=== PATIENT | female | born 1990 | race Caucasian/White ===

== ENCOUNTER 2019-07-09 09:58 | Inpatient (IN) ==
--- OUTSIDE RECORDS SUMMARY | 2019-07-09 10:00 | External Medical Summary | Continuity of Care Document ---
:1990 Author Name Nasima Lama Address Unavailable Unavailable , Care Team Providers Name Role Phone Jerica Lama, Danyell Unavailable 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 Daina Rhodes Start: 19-Aug-2011 Quantity: 1 18 GM Inhaler Refills: 11 predniSONE 10 MG Oral Tablet; 4 tablets daily for 3 days, 3 tablets daily for 3 days, 2 tablets daily for 3 days, one tablet daily for 3 days, then discontinue. Daina Rhodes Start: 05-Sep-2014 Quantity: 30 Refills: 0 Procedures Procedures not documented Immunizations Immunizations not documented Family History Unknown Family Member Family history of Allergic Rhinitis Status: Active Comm ents: Family History Social History - Smoking Status Never smoked tobacco Plan of Treatment Planned Observations Planned Goals not documented Results No Known Results Results not documented
[2019-07-09] MEDS ORDERED: MAGNESIUM SULFATE 1GM / D5W BAG IV STA (10:24)
[2019-07-09] MEDS ORDERED: SODIUM CHLORIDE 0.9% 1000ML 2,000 ML IV ONE (10:24)
[2019-07-09] MEDS ORDERED: ALBUT/IPRATROP 3MG/0.5MG NEB 3 ML VIAL NEB STA ×2 (10:24→11:40)
[2019-07-09] MEDS ORDERED: SODIUM CHLORIDE 0.9% 1000ML 1,000 ML IV SCH (10:30)
[2019-07-09 11:03] LABS: Basophils # (auto) 0.04 K/uL (0-0.2); Basophils % (auto) 0.6 %; Eosinophils # (auto) 0.57 K/uL (0-0.5); Eosinophils % (auto) 8.1 %; Hematocrit (blood only) 48.3 % (37-47); Hemoglobin 17.4 g/dL (12.0-16.0); Immature Granulocytes # (auto) 0.01 K/uL (0.00-0.02); Immature Granulocytes % (auto) 0.1 %; Lymphocytes % (auto) 11.4 %; Mean Corpuscular Hemoglobin 31.1 pg (25-34); Mean Corpuscular Volume 86.3 fL (80-100); Mean Platelet Volume 10.1 fL (7.4-10.4); Monocytes # (auto) 0.15 K/uL (0.11-0.59); Monocytes % (auto) 2.1 %; Neutrophils # (auto) 5.46 K/uL (1.4-6.5); Neutrophils % (auto) 77.7 %; Platelet Count 235 K/uL (130-400); RDW Coefficient of Variation 13.5 % (11.5-14.5); RDW Standard Deviation 41.7 fL (36.4-46.3); White Blood Count 7.03 K/uL (4.8-10.8)
[2019-07-09 11:21] LABS: BUN Creatinine Ratio 12.2 (10-20); Blood Urea Nitrogen 12 mg/dl (7-18); Calcium 9.9 mg/dl (8.5-10.1); Carbon Dioxide 27 mmol/L (21-32); Chloride 106 mmol/L (98-107); Creatinine Clr Calc Pharmacy 84.6 ml/min; Est GFR (African American) 96.4; Est GFR (Non-African American) 83.1; Glucose 118 mg/dl (70-99); Potassium 4.3 mmol/L (3.5-5.1); Sodium 139 mmol/L (136-145)
[2019-07-09 11:25] LABS: Troponin I < 0.015 ng/ml (0-0.045)
[2019-07-09] MEDS ORDERED: methylPREDNISolone 125 MG/2 ML VIAL IV STA (11:40)
[2019-07-09] MEDS ORDERED: OPTIRAY 320 125ml IV PRN (13:11)
--- NOTE | 2019-07-09 13:27 | CT Scan Report ---
CT angio chest PE protocol CT DOSE: 259.56 mGy.cm HISTORY: Chest pain. Dyspnea. PE TECHNIQUE: Multiaxial CT images of the chest were performed following the intravenous administration of contrast to evaluate the pulmonary arteries. Maximal intensity projection images were also obtaine d. A dose lowering technique was utilized adhering to the principles of ALARA. COMPARISON STUDY: None. FINDINGS: There is a normal caliber thoracic aorta with no evidence for dissection. There is no evide nce for pulmonary embolus. No pleural effusions. No pneumothorax. The liver and spleen are unremarkab le. No mediastinal or hilar lymphadenopathy. The central airways are patent. The lungs are clear. Minimal right basilar atelectatic change present in image 30. IMPRESSION: 1. No evidence for pulmonary embolus. 2. Minimal scattered areas of atelectasis with no focal infiltrate. ACT 112: Negative or not required by law. The above report was generated using voice recognition software. It may contain grammatical, syntax or spelling errors. Electronically signed by: Alexis Roman M.D. 07/09/2019 1:26 PM
[2019-07-09 13:52] LABS: Influenza A virus by PCR Neg for Influ A (Neg); Influenza B virus by PCR Neg for Influ B (Neg)
--- NOTE | 2019-07-09 14:08 | History & Physical Report ---
Date of Service July 09, 2019 Assessment & Plan (1) Asthma exacerbation: Exacerbation of asthma, probably due to viral infection. [employer] swab for influenza A/B PCR negative. Persistent severe symptoms after receiving nebs, steroids, IV Mg, and IV fluids in ED. IV methylprednisolone. Levalbuterol / ipratropium nebs. No apparent indication for antibiotics at this time; reassess need if symptoms persist or worsen. Monitor PEFR's. (2) DVT prophylaxis: Low risk for VTE per IMPROVE risk assessment model, but increased risk due to asthma exacerbation and decreased mobility. SQ enoxaparin. Ambulate. (3) Discharge planning issues: Anticipated discharge to home. Family Medicine follow-up with Dr. Recinos. History of Present Illness Chief Complaint: cough, wheezing, shortness of breath Primary Care Provider: PT DECLINED 29 YO female followed by Dr. Recinos. History of asthma. Hospitalized in past, never intubated. Otherwise, enjoys good health. Noted sinus congestion a few weeks ago. Developed cough, wheezing, SOB about 2 days ago. No fever. No pharyngitis. No chest pain. No sick contacts. No international travel. Works with horses. No unusual exposure to dust, smoke, irritants, allergens. Tried doxycycline and albuterol nebs without significant improvement. Symptoms worsening. Now experiencing dyspnea with minimal exertion (e.g., walking to bathroom). Came to ED for evaluation. Persistent wheezing and SOB after receiving nebs, IV fluids, IV magnesium, and IV steroids. Allergies Allergy/AdvReac Type Severity Reaction Status Date / Time Penicillins Allergy Unknown HIVES Unverified 07/09/19 10:32 Home Medications Home Medications Medication Instructions Recorded Confirmed Type albuterol sulfate 2 puff INHALATION Q4H PRN 07/09/19 07/09/19 History albuterol sulfate 2.5 mg INHALATION Q4H PRN 07/09/19 07/09/19 History Past Med/Surg History Medical History (Updated 07/09/19 @ 15:41 by Salomón Burroughs MD) Asthma (Chronic) Pneumonia (Resolved) Family History (Updated 07/09/19 @ 15:32 by Salomón Burroughs MD) Other Family history non-contributory Social History Preferred Language: Belarusian Communication Ability: Effective Beliefs That Will Affect Care: None Current Living Situation Comment: [facility] Other Information That Helps Us Care for You: No Feels Safe at Home: Yes Safety Concerns: Feels Safe At This Time Smoking Status: Never smoker Hx Alcohol Use: No Hx Substance Use: No Review of Systems Constitutional: no fever and no weight loss Ear, Nose, Mouth, Throat: no sore throat Respiratory: as per Subjective / HPI Cardiovascular: no chest pain Gastrointestinal: no nausea, no vomiting and no diarrhea/loose stools Genitourinary: no dysuria Musculoskeletal: no joint pain and no myalgia Hematologic / Lymphatic: no easy bleeding and no easy bruising Physical Exam Constitutional: WD/WN, vitals as above no acute distress Eyes: PERRL, conjunctivae normal, anicteric sclerae ENMT: external ear and nose normal, oropharynx normal Neck: trachea midline, no thyromegaly Respiratory: + tachypneic Auscultation: + wheezes (diffuse, moderately severe, slightly prolonged expiration) Cardiovascular: Rate/Rhythm: regular rate and + tachycardic Heart Sounds: no gallop, no murmur and no cardiac rub Vessels: no JVD Extremities: normal capillary refill; no calf tenderness and no edema Gastrointestinal (Abdomen): normal bowel sounds, soft, nontender, no hepatosplenomegaly Musculoskeletal: Head/Neck/Chest: neck supple Extremities: strength 5/5 throughout; no cyanosis and no clubbing Skin: no rashes, warm and dry Neurologic: PERRL, EOMI no facial palsy no dysarthria or aphasia Psychiatric: Orientation: alert and oriented x 3 Affect: euthymic affect Lymphatic: no cervical lymphadenopathy Results & Data Vital Signs (Past 12 Hours) Vital Signs Temp Pulse Pulse Resp BP Pulse Ox 07/09/19 12:01 137 H 24 100 07/09/19 12:00 125 H 16 116/63 100 07/09/19 11:40 124 H 25 H 98 07/09/19 11:30 125 H 23 128/90 99 07/09/19 11:20 126 H 22 96 07/09/19 11:11 127 H 18 96 07/09/19 11:09 96 07/09/19 11:08 125 H 24 128/72 97 07/09/19 10:42 106 H 18 88 L 07/09/19 10:10 36.5 C 121 H 20 122/83 89 L Laboratory Results Laboratory Results - last 24 hr 07/09/19 07/09/19 07/09/19 10:52 10:52 12:00 WBC 7.03 RBC 5.60 H Hgb 17.4 H Hct 48.3 H MCV 86.3 MCH 31.1 MCHC 36.0 RDW Std Deviation 41.7 RDW Coeff of Renato 13.5 Plt Count 235 MPV 10.1 Immature Gran % (Auto) 0.1 Neut % (Auto) 77.7 Lymph % (Auto) 11.4 [place] % (Auto) 2.1 Eos % (Auto) 8.1 Baso % (Auto) 0.6 Immature Gran # (Auto) 0.01 Neut # (Auto) 5.46 Lymph # (Auto) 0.80 L [place] # (Auto) 0.15 Eos # (Auto) 0.57 H Baso # (Auto) 0.04 Sodium 139 Potassium 4.3 Chloride 106 Carbon Dioxide 27 Anion Gap 6.0 BUN 12 Creatinine 0.94 Est Cr Clr Drug Dosing 84.6 Est GFR ( Amer) 96.4 Est GFR (Non-Af Amer) 83.1 BUN/Creatinine Ratio 12.2 Glucose 118 H Calcium 9.9 Troponin I < 0.015 Influenza Type A (PCR) Neg for Influ A Influenza Type B (PCR) Neg for Influ B Diagnostic Findings CTA CHEST FINDINGS: There is a normal caliber thoracic aorta with no evidence for dissection. There is no evidence for pulmonary embolus. No pleural effusions. No pneumothorax. The liver and spleen are unremarkable. No mediastinal or hilar lymphadenopathy. The central airways are patent. The lungs are clear. Minimal right basilar atelectatic change present in image 30. IMPRESSION: 1. No evidence for pulmonary embolus. 2. Minimal scattered areas of atelectasis with no focal infiltrate. ACT 112: Negative or not required by law. The above report was generated using voice recognition software. It may contain grammatical, syntax or spelling errors. Electronically signed by: Alexis Roman M.D. 07/09/2019 1:26 PM Code Status & VTE Plan VTE Prophylaxis Plan VTE Prophylaxis will be ordered: Yes (1) Asthma exacerbation Asthma persistence: persistent Asthma severity: severe Qualified Code(s): J45.51 - Severe persistent asthma with (acute) exacerbation
--- NOTE | 2019-07-09 15:17 | Emergency Department Note ---
Entered by Elaine Cardona acting as a scribe for History of Present Illness General Chief complaint: Asthma Stated complaint: ASTHMA EXACERBATION Time Seen by Provider: 07/09/19 10:14 Source: patient Mode of arrival: ambulatory Limitations: no limitations History of Present Illness Onset (ago): day(s) 1 Location: chest Maximum Pain Intensity: 0 Exacerbated By: + movement Associated symptoms: + fever/chills (+chills, -fever) and + other (-abdominal pain); no nausea/vomiting Treatments prior to arrival: none The patient is a 29 year old white female w/ PMHx of asthma who presents to the ED w/ CC of an asthma exacerbation that worsened last night. She went to [facility] this morning and after getting X-rays and a steroid, was referred here to the ED. She has been sick with cold symptoms for the past few days but notes her symptoms worsened last night. Any movement worsens her breathing. She had the chills yesterday but is unsure if she was febrile. She did not get a flu sh ot this year. She denies any recent abdominal pain, nausea or vomiting. Home Medications Home Medications Medication Instructions Recorded Confirmed Type No Known Home Medications 07/09/19 07/09/19 History Allergies Allergy/AdvReac Type Severity Reaction Status Date / Time Penicillins Allergy Unknown HIVES Unverified 07/09/19 10:32 Past Med/Surg History Medical History Asthma (Chronic) Asthma exacerbation (Acute) Asthma exacerbation (Acute) Pneumonia (Acute) Social History Feels Safe at Home: Yes Smoking Status: Never smoker Review of Systems See HPI for pertinent positives & negatives. and A total of 10 systems reviewed and were otherwise negative Physical Exam Vital Signs Vital Signs - 24 hr 07/09/19 10:10 07/09/19 10:42 07/09/19 11:08 Temperature 36.5 C Temperature Source Oral Pulse Rate 121 H 125 H Pulse Rate [Apical] 106 H Pulse Rate from SpO2 Sensor 124 H Pulse Rhythm Regular Pulse Strength Normal Respiratory Rate 20 18 24 Respiratory Effort / Characteristics Non-Labored Spontaneous Spontaneous Respiratory Depth Normal Respiratory Pattern Regular Blood Pressure 122/83 128/72 Blood Pressure Mean 96 92 Blood Pressure Position Sitting Pulse Oximetry 89 L 88 L 97 Oxygen Delivery Method Room Air Room Air Oxygen Flow Rate Sepsis Recent Fever Within 48 Hours No Sepsis Action Taken by Nursing No Action Required 07/09/19 11:09 07/09/19 11:11 07/09/19 11:20 Temperature Temperature Source Pulse Rate 127 H 126 H Pulse Rate [Apical] Pulse Rate from SpO2 Sensor 126 H 127 H Pulse Rhythm Pulse Strength Respiratory Rate 18 22 Respiratory Effort / Characteristics Respiratory Depth Respiratory Pattern Blood Pressure Blood Pressure Mean Blood Pressure Position Pulse Oximetry 96 96 96 Oxygen Delivery Method Nebulizer Oxygen Flow Rate 10 Sepsis Recent Fever Within 48 Hours Sepsis Action Taken by Nursing 07/09/19 11:30 07/09/19 11:40 07/09/19 12:00 Temperature Temperature Source Pulse Rate 125 H 124 H 125 H Pulse Rate [Apical] Pulse Rate from SpO2 Sensor 125 H 124 H 125 H Pulse Rhythm Pulse Strength Respiratory Rate 23 25 H 16 Respiratory Effort / Characteristics Respiratory Depth Respiratory Pattern Blood Pressure 128/90 116/63 Blood Pressure Mean 109 84 Blood Pressure Position Pulse Oximetry 99 98 100 Oxygen Delivery Method Oxygen Flow Rate Sepsis Recent Fever Within 48 Hours Sepsis Action Taken by Nursing 07/09/19 12:01 07/09/19 12:20 07/09/19 12:38 Temperature Temperature Source Pulse Rate 137 H 136 H 142 H Pulse Rate [Apical] Pulse Rate from SpO2 Sensor 136 H 137 H 142 H Pulse Rhythm Pulse Strength Respiratory Rate 24 23 22 Respiratory Effort / Characteristics Respiratory Depth Respiratory Pattern Blood Pressure 115/85 Blood Pressure Mean 90 Blood Pressure Position Pulse Oximetry 100 93 93 Oxygen Delivery Method Oxygen Flow Rate Sepsis Recent Fever Within 48 Hours Sepsis Action Taken by Nursing 07/09/19 12:40 07/09/19 13:00 07/09/19 13:01 Temperature Temperature Source Pulse Rate 139 H 140 H 141 H Pulse Rate [Apical] Pulse Rate from SpO2 Sensor 139 H 140 H 141 H Pulse Rhythm Pulse Strength Respiratory Rate 28 H 23 24 Respiratory Effort / Characteristics Respiratory Depth Respiratory Pattern Blood Pressure 116/74 Blood Pressure Mean 81 Blood Pressure Position Pulse Oximetry 95 95 95 Oxygen Delivery Method Oxygen Flow Rate Sepsis Recent Fever Within 48 Hours Sepsis Action Taken by Nursing 07/09/19 13:28 07/09/19 13:30 07/09/19 13:40 Temperature Temperature Source Pulse Rate 146 H 143 H 143 H Pulse Rate [Apical] Pulse Rate from SpO2 Sensor 145 H 142 H 142 H Pulse Rhythm Pulse Strength Respiratory Rate 23 22 25 H Respiratory Effort / Characteristics Respiratory Depth Respiratory Pattern Blood Pressure 134/75 Blood Pressure Mean 106 Blood Pressure Position Pulse Oximetry 92 93 92 Oxygen Delivery Method Oxygen Flow Rate Sepsis Recent Fever Within 48 Hours Sepsis Action Taken by Nursing 07/09/19 14:00 07/09/19 14:01 07/09/19 14:20 Temperature Temperature Source Pulse Rate 144 H 149 H 143 H Pulse Rate [Apical] Pulse Rate from SpO2 Sensor 145 H 148 H 142 H Pulse Rhythm Pulse Strength Respiratory Rate 20 25 H 20 Respiratory Effort / Characteristics Respiratory Depth Respiratory Pattern Blood Pressure 136/83 Blood Pressure Mean 92 Blood Pressure Position Pulse Oximetry 93 94 92 Oxygen Delivery Method Oxygen Flow Rate Sepsis Recent Fever Within 48 Hours Sepsis Action Taken by Nursing 07/09/19 14:30 07/09/19 14:40 07/09/19 15:00 Temperature Temperature Source Pulse Rate 135 H 140 H 137 H Pulse Rate [Apical] Pulse Rate from SpO2 Sensor 136 H 138 H 138 H Pulse Rhythm Pulse Strength Respiratory Rate 18 26 H 32 H Respiratory Effort / Characteristics Respiratory Depth Respiratory Pattern Blood Pressure 138/76 106/72 Blood Pressure Mean 96 80 Blood Pressure Position Pulse Oximetry 91 93 93 Oxygen Delivery Method Oxygen Flow Rate Sepsis Recent Fever Within 48 Hours Sepsis Action Taken by Nursing 07/09/19 15:01 Temperature Temperature Source Pulse Rate 136 H Pulse Rate [Apical] Pulse Rate from SpO2 Sensor 137 H Pulse Rhythm Pulse Strength Respiratory Rate 24 Respiratory Effort / Characteristics Respiratory Depth Respiratory Pattern Blood Pressure Blood Pressure Mean Blood Pressure Position Pulse Oximetry 92 Oxygen Delivery Method Oxygen Flow Rate Sepsis Recent Fever Within 48 Hours Sepsis Action Taken by Nursing GENERAL: Patient appears to be in mild distress, well nourished, non-toxic. EYE EXAM: Normal conjunctiva. PERRL, no anisocoria and EOM's grossly intact w/o pain. OROPHARYNX: Moist mucous membranes. Grossly normal dentition. NECK: Supple, no nuchal rigidity, no adenopathy, non-tender. No signs of meningismus. Non-stridulous. LUNGS: Diffuse wheezes throughout, prolonged expiratory phase. Normal chest wall mechanics. HEART: NSR, no MRG. ABDOMEN: Abdomen soft, non-tender, normo-active bowel sounds, no masses, no rebound or guarding. BACK: No CVA TTP. SKIN: No rashes and no bruising. UPPER EXTREMITIES: Upper extremities are grossly normal. LOWER EXTREMITIES: No pitting edema. No calf pain. NEURO EXAM: A&O x3, cranial nerves II-XII grossly intact, normal speech, moves all 4 extremities on command w/o issue. Course Course 1017: The patient was evaluated in room A9 and a complete history and physical were performed. 1100: I reevaluated the patient. She refused the chest X-Ray and understands that I cannot see the images from garbs. 1140: I reevaluated the patient. She does not sound much better but has not received her IV fluids yet. 1230: The patient was 87% when she got up and walked to the bathroom. 1245: I reevaluated the patient. She is agreeable with doing a CT scan and remaining in the hospital for further evaluation and management and she is agreeable with the plan. 1303: I discussed the patients case with Dr. Burroughs, [facility] Hospitalist. The patient will be further evaluated. Administered Medications Ioversol (Optiray 320 125ml) 120 ml IV ONCE PRN PRN Reason: Interaction Checking Stop: 07/13/19 13:10 Last Admin: 07/09/19 13:11 Dose: 120 ml Documented by: [id number] Discontinued Medications Albuterol (Duoneb) 12 ml NEB ONE STA Stop: 07/09/19 10:25 Last Admin: 07/09/19 10:40 Dose: 12 ml Documented by: [id number] Albuterol (Duoneb) 3 ml NEB NOW STA Stop: 07/09/19 11:41 Last Admin: 07/09/19 11:47 Dose: 3 ml Documented by: [id number] Sodium Chloride (Nss 1000ml) 2,000 mls @ 999 mls/hr IV .Q2H1M ONE Stop: 07/09/19 12:24 Last Infusion: 07/09/19 13:13 Dose: 0 mls/hr Documented by: [id number] Admin: 07/09/19 11:07 Dose: 999 mls/hr Documented by: [id number] Sodium Chloride (Nss 1000ml) 1,000 mls @ 999 mls/hr IV .Q1H1M GABBI Stop: 07/09/19 11:30 Last Admin: 07/09/19 12:11 Dose: Not Given Documented by: [id number] Magnesium Sulfate/Dextrose (Magnesium Sulfate / D5w) 2 gm IV NOW STA Stop: 07/09/19 10:25 Last Admin: 07/09/19 11:07 Dose: 2 gm Documented by: [id number] Methylprednisolone (Solumedrol) 60 mg IV NOW STA Stop: 07/09/19 11:41 Last Admin: 07/09/19 11:47 Dose: 60 mg Documented by: [id number] Medical Decision Making Medical Records Attestation: I reviewed the patient's medical records. Home Medications Current Medication List: was personally reviewed by me Laboratory Data Attestation: I reviewed the patient's lab results. Result diagrams: 07/09/19 10:52 07/09/19 10:52 Lab Results 07/09/19 07/09/19 07/09/19 Range/Units 10:52 10:52 12:00 WBC 7.03 (4.8-10.8) K/uL RBC 5.60 H (4.2-5.4) M/uL Hgb 17.4 H (12.0-16.0) g/dL Hct 48.3 H (37-47) % MCV 86.3 (80-100) fL MCH 31.1 (25-34) pg MCHC 36.0 (32-36) g/dL RDW Std Deviation 41.7 (36.4-46.3) fL RDW Coeff of Renato 13.5 (11.5-14.5) % Plt Count 235 (130-400) K/uL MPV 10.1 (7.4-10.4) fL Immature Gran % (Auto) 0.1 % Neut % (Auto) 77.7 % Lymph % (Auto) 11.4 % [place] % (Auto) 2.1 % Eos % (Auto) 8.1 % Baso % (Auto) 0.6 % Immature Gran # (Auto) 0.01 (0.00-0.02) K/uL Neut # (Auto) 5.46 (1.4-6.5) K/uL Lymph # (Auto) 0.80 L (1.2-3.4) K/uL [place] # (Auto) 0.15 (0.11-0.59) K/uL Eos # (Auto) 0.57 H (0-0.5) K/uL Baso # (Auto) 0.04 (0-0.2) K/uL Sodium 139 (136-145) mmol/L Potassium 4.3 (3.5-5.1) mmol/L Chloride 106 (98-107) mmol/L Carbon Dioxide 27 (21-32) mmol/L Anion Gap 6.0 (3-11) BUN 12 (7-18) mg/dl Creatinine 0.94 (0.6-1.2) mg/dl Est Cr Clr Drug Dosing 84.6 ml/min Est GFR ( Amer) 96.4 Est GFR (Non-Af Amer) 83.1 BUN/Creatinine Ratio 12.2 (10-20) Glucose 118 H (70-99) mg/dl Calcium 9.9 (8.5-10.1) mg/dl Troponin I < 0.015 (0-0.045) ng/ml Influenza Type A (PCR) Neg for Influ A (Neg) Influenza Type B (PCR) Neg for Influ B (Neg) Imaging Data Radiologist's Impression: Radiology results as stated below per my review and the radiologist's interpretation: CT angio chest PE protocol CT DOSE: 259.56 mGy.cm HISTORY: Chest pain. Dyspnea. PE TECHNIQUE: Multiaxial CT images of the chest were performed following the intravenous administration of contrast to evaluate the pulmonary arteries. Maximal intensity projection images were also obtained. A dose lowering tech nique was utilized adhering to the principles of ALARA. COMPARISON STUDY: None. FINDINGS: There is a normal caliber thoracic aorta with no evidence for dissection. There is no evidence for pulmonary embolus. No pleural effusions. No pneumothorax. The liver and spleen are unremarkable. No mediastinal or hilar lymphadenopathy. The central airways are patent. The lungs are clear. Minimal right basilar atelectatic change present in image 30. IMPRESSION: 1. No evidence for pulmonary embolus. 2. Minimal scattered areas of atelectasis with no focal infiltrate. ACT 112: Negative or not required by law. The above report was generated using voice recognition software. It may contain grammatical, syntax or spelling errors. Electronically signed by: Alexis Roman M.D. 07/09/2019 1:26 PM ECG Data Attestation: I personally reviewed and interpreted this ECG as follows: Indication: + SOB/dyspnea Rate (beats per minute): 142 Rhythm: + sinus tachycardia ECG [place]: + Right axis deviation ECG ST segments: + T-wave inversions (Throughout) ECG Findings: + Other (Normal interval) Comparison ECG Date: from (09/03/2014) Change: the following changes noted (TWI anteriorly and inferiorly are new compared to previous) Blood Pressure Blood Pressure Findings: Normal blood pressure Blood Pressure Disposition: did not require urgent referral MDM Narrative The patient is a 29 year old white female w/ PMHx of asthma who presents to the ED w/ CC of an asthma exacerbation that worsened last night. Differential diagnoses includes but is not limited to pneumonia, bronchitis, COPD/Asthma exacerbation, pneumothorax, pulmonary embolism, congestive heart failure, acute coronary syndrome. Cardiac monitoring: An order was placed for continuous cardiac monitoring. The monitor shows a rate of 130 with sinus tachycardia rhythm. Patient was seen and evaluated the bedside as a referral from [facility] due to worsening asthma exacerbation. The patient states that her symptoms have been progressively worse but worsened yesterday. The patient does complain of some shortness of breath. No lower extremity swelling. Patient does have wheezes throughout. No prior history of DVT or PE no recent prolonged car or plane t ravel hospitalizations or surgeries. Patient did a blood work completed along with an EKG chest x-rays were obtained from the facility as the patient was not wanting to repeat a chest film. Believe this is reasonable. Patient was reassessed and did not have much improvement in her symptoms but additional duo nebs and Solu-Medrol were ordered. The patient had been mildly hypoxic upon presentation 89%. Patient's blood work is unremarkable. EKG shows sinus tachycardia. The patient did receive repeated nebulizer treatments and steroids. The patient still did not have much in terms of improvement so CT Hollie of the chest was ordered as the patient has been persistently tachycardic. The patient did receive IV fluids. I did try to obtain the patient's outpatient chest x-ray is which could not be viewed here in the department. Given the patient's persistent hypoxia and not improvement of symptoms the patient was admitted to the medicine service. Impression & Plan Asthma exacerbation, SOB (shortness of breath) Discharge Plan Visit Data Chief Complaint: Asthma Stated Complaint: ASTHMA EXACERBATION ED Provider: Zac Barbosa Discharge Problem: Asthma exacerbation, SOB (shortness of breath) Patient Disposition: Being Evaluated by Hospitalist Discharge Instructions Interventions: ED Discharge Assessment Last Done: 07/09/19 15:11 Prescriptions Prescriptions: No Action No Known Home Medications RF: 0 Referrals Referrals: PT,DECLINED [Primary Care Provider] - Discharge Problem: Asthma exacerbation Qualifiers: Asthma severity: severe Asthma persistence: persistent Qualified Code(s): J45.51 - Severe persistent asthma with (acute) exacerbation The scribe's documentation has been prepared under my direction and personally reviewed by me in its entirety. I confirm that the note above accurately reflects all work, treatment, procedures, and medical decision making performed by me.
[2019-07-09] MEDS ORDERED: LEVALBUTEROL 1.25MG/0.5ML NEB NEB SCH (15:37)
[2019-07-09] MEDS ORDERED: LEVALBUTEROL HCL 0.63 MG/3 ML NEB NEB PRN (15:37)
[2019-07-09] MEDS: LACTATED RINGER'S 1,000 ML IV SCH ×2 (16:05→22:25)
--- NOTE | 2019-07-09 16:54 | Electrocardiogram Report ---
Test Reason : Blood Pressure : / mmHG Vent. Rate : 142 BPM Atrial Rate : 142 BPM P-R Int : 112 ms QRS Dur : 078 ms QT Int : 352 ms P-R-T Axes : 051 086 029 degrees QTc Int : 541 ms Sinus tachycardia Incomplete right bundle branch block Abnormal ECG When compared with ECG of 03-SEP-2014 21:09, T wave inversion more evident in Inferior leads T wave inversion now evident in Anterolateral leads Confirmed by Moses Fong ([id number]) on 07/09/2019 4:54:02 PM Referred By: REFERRED SELF Confirmed By:Lionel Fong
[2019-07-09] MEDS: methylPREDNISolone 80 MG in SYRINGE 0 ML IV SCH ×2 (16:56→23:38)
[2019-07-09] MEDS: ACETAMINOPHEN 325 MG TAB PO PRN ×2 (16:58→22:25)
[2019-07-09] MEDS ORDERED: XOPENEX/ATROVENT 0.63mg/0.5MG NEB COMBO NEB SCH (19:00)
[2019-07-09] MEDS: IPRATROPIUM BROMIDE NEB SOLN 0.02% 2.5 ML VIAL INH SCH (19:03)
[2019-07-09] MEDS: LEVALBUTEROL HCL 0.63 MG/3 ML NEB NEB SCH (19:03)
[2019-07-09 19:25] LABS: Base Excess VBG -3.8 mEq/L; Oxygen Saturation VBG 75.7 %; pH VBG 7.36 (7.36-7.41)
[2019-07-09 19:32] LABS: INR 1.2 (0.9-1.1); Partial Thromboplastin Time 26.3 Seconds (21.0-31.0); Prothrombin Time 11.8 Seconds (9.0-12.0)
[2019-07-09 19:44] LABS: BUN Creatinine Ratio 6.8 (10-20); Calcium 8.9 mg/dl (8.5-10.1); Creatinine Clr Calc Pharmacy 81.9 ml/min; Est GFR (African American) 92.8
[2019-07-09 19:45] LABS: Potassium 3.6 mmol/L (3.5-5.1)
[2019-07-09] MEDS ORDERED: POTASSIUM CHLORIDE 20 MEQ TABCR PO ONE (21:00)
[2019-07-09] MEDS: ENOXAPARIN INJ 40 MG/0.4 ML SYR SQ SCH (21:40)
[2019-07-09] MEDS ORDERED: SODIUM CHLORIDE 0.65% NA SOLN 45 ML (OCEAN) PRN (22:26)
[2019-07-09] MEDS ORDERED: SODIUM CHLORIDE 0.65% NA SOLN 45 ML (OCEAN) ONE (22:44)
[2019-07-09] MEDS ORDERED: IBUPROFEN 600 MG TAB PO STA (23:25)
[2019-07-10] MEDS ORDERED: GUAIFENESIN/CODEINE 100MG/10MG 5ML UDC PO PRN (04:21)
[2019-07-10] MEDS: BENZONATATE 100 MG CAPSULE PO PRN (04:33)
[2019-07-10] MEDS ORDERED: XOPENEX/ATROVENT 1.25mg/0.5MG NEB COMBO NEB PRN (05:03)
[2019-07-10] MEDS ORDERED: IPRATROPIUM BROMIDE NEB SOLN 0.02% 2.5 ML VIAL INH PRN (05:15)
[2019-07-10] MEDS ORDERED: LEVALBUTEROL 1.25MG/0.5ML NEB INH PRN (05:15)
[2019-07-10] MEDS: LACTATED RINGER'S 1,000 ML IV SCH ×2 (05:38→12:08)
[2019-07-10] MEDS: IPRATROPIUM BROMIDE NEB SOLN 0.02% 2.5 ML VIAL INH SCH ×3 (07:41→15:20)
[2019-07-10] MEDS: LEVALBUTEROL HCL 0.63 MG/3 ML NEB NEB SCH ×3 (07:41→15:20)
[2019-07-10 08:31] LABS: Calcium 9.2 mg/dl (8.5-10.1); Creatinine Clr Calc Pharmacy 116.4 ml/min; Est GFR (African American) 137.6; Est GFR (Non-African American) 118.7; Potassium 3.8 mmol/L (3.5-5.1)
[2019-07-10] MEDS: ACETAMINOPHEN 325 MG TAB PO PRN (08:42)
[2019-07-10] MEDS ORDERED: methylPREDNISolone 60 MG in SYRINGE 0 ML IV SCH (09:00)
--- NOTE | 2019-07-10 11:36 | Hospitalist Progress Note ---
Date of Service July 10, 2019 Assessment & Plan (1) Asthma exacerbation: Exacerbation of asthma, probably due to viral infection. [employer] swab for influenza A/B PCR negative. Persistent severe symptoms after receiving nebs, steroids, IV Mg, and IV fluids in ED. IV methylprednisolone. Levalbuterol / ipratropium nebs. No apparent indication for antibiotics at this time; reassess need if symptoms persist or worsen. Clinically a lot better today Complains to have cough and wheezing otherwise breathing in each much improved She wants to go home this afternoon Was advised to ambulate and see how things go We will try to wean off oxygen (2) DVT prophylaxis: Low risk for VTE per IMPROVE risk assessment model, but increased risk due to asthma exacerbation and decreased mobility. SQ enoxaparin. Ambulate. (3) Discharge planning issues: Anticipated discharge to home. Family Medicine follow-up with Dr. Recinos. Admission and Anticipated Discharge Date Admission Date: July 09, 2019 Subjective 07/10/2019 The patient was seen and examined in medical telemetry in presence of the father She was admitted yesterday with acute exacerbation of asthma She has been feeling a lot better this morning Only complains however cough and some wheezing She wants to go home this afternoon and was advised to ambulate in the hallway see how things go Review of Systems Review of Systems: All systems reviewed and are unremarkable except as noted below Respiratory: + cough, + dyspnea on exertion and + wheezing Physical Exam Physical Exam: Lying in bed without any acute discomfort Constitutional: well developed and well nourished; no acute distress and not ill appearing Eyes: PERRL, conjunctivae normal, anicteric sclerae ENMT: external ear and nose normal, oropharynx normal Neck: trachea midline, no thyromegaly Respiratory: normal respiratory effort; no respiratory distress Auscultation: + diminished lung sounds and + wheezes (Bilaterally moderate) Cardiovascular: Rate/Rhythm: regular rate, regular rhythm and + tachycardic Heart Sounds: no murmur Gastrointestinal (Abdomen): Inspection/Auscultation: abdomen normal to inspection and normal bowel sounds Percussion/Palpation: abdomen soft; abdomen nontender Musculoskeletal: No acute arthritis in any joint Neurologic: patellar DTR's 2+ bilat, sensation intact Lymphatic: no cervical or axillary lymphadenopathy Results & Data ([facility]) Vital Signs (Past 12 Hours) Vital Signs Temp Pulse Pulse Resp BP Pulse Ox 07/10/19 11:09 118 H 18 92 07/10/19 07:43 119 H 20 92 07/10/19 07:24 124 H 07/10/19 05:49 112 H 22 92 07/10/19 03:04 36.9 C 115 H 20 127/77 92 07/10/19 01:12 115 H 20 92 07/10/19 00:00 124 H Laboratory Results BMP 07/09/19 07/10/19 19:10 07:22 Sodium 141 141 Potassium 3.6 D 3.8 Chloride 111 H 112 H Carbon Dioxide 22 22 BUN 7 D 6 L Creatinine 0.97 0.70 Glucose 161 H 131 H Calcium 8.9 9.2 Medications Administered Current Inpatient Medications Acetaminophen (Tylenol) 650 mg PO Q4H PRN PRN Reason: Pain or Fever Stop: 08/08/19 15:36 Last Admin: 07/10/19 08:42 Dose: 650 mg Documented by: Benzonatate (Tessalon Perle) 100 mg PO TID PRN PRN Reason: Cough Stop: 08/09/19 04:20 Last Admin: 07/10/19 04:33 Dose: 100 mg Documented by: Enoxaparin Sodium (Lovenox) 40 mg SQ HS GABBI Stop: 08/08/19 20:59 Last Admin: 07/09/19 21:40 Dose: 40 mg Documented by: Guaifenesin/Codeine Phosphate (Robitussin-Ac Sugar Free) 5 ml PO Q6H PRN PRN Reason: Cough Stop: 08/09/19 04:20 Lactated Ringer's (Lr) 1,000 mls @ 150 mls/hr IV .Q6H40M GABBI Stop: 08/08/19 15:36 Last Admin: 07/10/19 05:38 Dose: 150 mls/hr Documented by: Methylprednisolone 60 mg/ (Syringe) 0.96 mls @ 1.5 mls/min IV BID GABBI Stop: 08/09/19 08:59 Last Admin: 07/10/19 08:43 Dose: 1.5 mls/min Documented by: Ioversol (Optiray 320 125ml) 120 ml IV ONCE PRN PRN Reason: Interaction Checking Stop: 07/13/19 13:10 Last Admin: 07/09/19 13:11 Dose: 120 ml Documented by: Ipratropium [place] (Atrovent 0.02% 0.5mg/2.5ml) 0.5 mg INH QIDR GABBI Stop: 08/08/19 18:59 Last Admin: 07/10/19 11:08 Dose: 0.5 mg Documented by: Ipratropium [place] (Atrovent 0.02% 0.5mg/2.5ml) 0.5 mg INH Q2H PRN PRN Reason: Shortness Of Breath Or Wheezing Stop: 08/09/19 05:14 Last Admin: 07/10/19 05:46 Dose: 0.5 mg Documented by: Levalbuterol HCl (Xopenex 0.63 Mg/3 Ml Neb) 0.63 mg NEB Q3H PRN PRN Reason: severe wheezing Stop: 08/08/19 15:36 Last Admin: 07/10/19 01:11 Dose: 0.63 mg Documented by: Levalbuterol HCl (Xopenex 0.63 Mg/3 Ml Neb) 0.63 mg NEB QIDR [facility] Stop: 08/08/19 18:59 Last Admin: 07/10/19 11:08 Dose: 0.63 mg Documented by: Levalbuterol HCl (Xopenex 1.25mg/0.5ml Neb) 1.25 mg INH Q2H PRN PRN Reason: Shortness Of Breath Or Wheezing Stop: 08/09/19 05:14 Last Admin: 07/10/19 05:46 Dose: 1.25 mg Documented by: Sodium Chloride ([place] Nasal) 0 sprays NA PRN PRN PRN Reason: dry nose Stop: 08/08/19 22:25 (1) Asthma exacerbation Asthma persistence: persistent Asthma severity: severe Qualified Code(s): J45.51 - Severe persistent asthma with (acute) exacerbation
[2019-07-10] MEDS ORDERED: ALBUTEROL HFA 8 GM INHALER INH PRN (17:01)
[2019-07-10] MEDS: ENOXAPARIN INJ 40 MG/0.4 ML SYR SQ SCH (21:37)
[2019-07-11] MEDS: BENZONATATE 100 MG CAPSULE PO PRN (03:06)
[2019-07-11] MEDS ORDERED: MAGNESIUM SULFATE / D5W 1 GM/100 ML BAG IV STA (04:52)
[2019-07-11] MEDS ORDERED: IPRATROPIUM BROMIDE NEB SOLN 0.02% 2.5 ML VIAL INH SCH ×3 (05:00→14:00)
[2019-07-11] MEDS ORDERED: LEVALBUTEROL 1.25MG/0.5ML NEB INH SCH ×2 (05:00→14:00)
[2019-07-11] MEDS ORDERED: LEVALBUTEROL HCL 1.25 MG/3 ML NEB NEB STA (05:12)
[2019-07-11] MEDS: methylPREDNISolone 60 MG in SYRINGE 0 ML IV SCH ×3 (05:38→20:45)
[2019-07-11] MEDS: ACETAMINOPHEN 325 MG TAB PO PRN ×3 (06:09→20:44)
[2019-07-11] MEDS ORDERED: XOPENEX/ATROVENT 1.25mg/0.5MG NEB COMBO NEB SCH (07:00)
[2019-07-11] MEDS ORDERED: XOPENEX/ATROVENT 0.63mg/0.5MG NEB COMBO NEB SCH ×2 (07:00→22:00)
[2019-07-11] MEDS ORDERED: LEVALBUTEROL HCL 1.25 MG/3 ML NEB NEB SCH (07:00)
[2019-07-11] MEDS ORDERED: LORazepam 0.5 MG TAB PO ONE (07:38)
[2019-07-11] MEDS: LEVALBUTEROL HCL 0.63 MG/3 ML NEB NEB SCH ×4 (07:51→19:38)
[2019-07-11] MEDS: FLUTICASONE FUROATE 200MCG 14 PUFFS/INHALER INH SCH (08:14)
[2019-07-11] MEDS ORDERED: predniSONE 20 MG TAB PO SCH (09:00)
--- NOTE | 2019-07-11 09:52 | XRay Report ---
XR chest 2V PA/lateral HISTORY: Acute Bronchitis/Pneumonia COMPARISON: Chest CTA 07/09/2019. FINDINGS: Faint hazy density within the right lung base. In retrospect this is present in the prior c hest CTA and favors a developing pneumonia. The left lung is clear. The heart is normal in size. No p leural effusions. No pneumothorax. IMPRESSION: Faint hazy density within the right lung base. In retrospect this was present in the prior chest CT 8 favors a developing pneumonia. ACT 112: Negative or not required by law. Electronically signed by: Tl Luke M.D. 07/11/2019 9:51 AM
[2019-07-11 10:39] LABS: Basophils # (auto) 0.01 K/uL (0-0.2); Basophils % (auto) 0.1 %; Eosinophils # (auto) 0.01 K/uL (0-0.5); Eosinophils % (auto) 0.1 %; Hematocrit (blood only) 40.1 % (37-47); Hemoglobin 13.4 g/dL (12.0-16.0); Immature Granulocytes # (auto) 0.02 K/uL (0.00-0.02); Immature Granulocytes % (auto) 0.2 %; Lymphocytes # (auto) 0.55 K/uL (1.2-3.4); Mean Corpuscular Hemoglobin 29.6 pg (25-34); Mean Corpuscular Hgb Conc 33.4 g/dL (32-36); Mean Corpuscular Volume 88.5 fL (80-100); Mean Platelet Volume 10.1 fL (7.4-10.4); Monocytes # (auto) 0.27 K/uL (0.11-0.59); Monocytes % (auto) 2.5 %; Neutrophils % (auto) 92.1 %; Platelet Count 190 K/uL (130-400); RDW Coefficient of Variation 14.1 % (11.5-14.5); Red Blood Count 4.53 M/uL (4.2-5.4); White Blood Count 10.96 K/uL (4.8-10.8)
[2019-07-11 10:54] LABS: BUN Creatinine Ratio 12.6 (10-20); Creatinine Clr Calc Pharmacy 88.9 ml/min; Est GFR (African American) 98.9; Est GFR (Non-African American) 85.3; Magnesium 1.9 mg/dl (1.8-2.4); Potassium 3.1 mmol/L (3.5-5.1)
[2019-07-11] MEDS: LEVOFLOXACIN/D5W 750 MG/150 ML BAG IV SCH (10:56)
[2019-07-11] MEDS ORDERED: IPRATROPIUM BROMIDE NEB SOLN 0.02% 2.5 ML VIAL INH PRN (11:39)
[2019-07-11] MEDS ORDERED: POTASSIUM CHLORIDE 20 MEQ TABCR PO STA (11:46)
[2019-07-11] MEDS ORDERED: XOPENEX/ATROVENT 1.25mg/0.5MG NEB COMBO NEB PRN (13:56)
[2019-07-11] MEDS ORDERED: LEVALBUTEROL HCL 0.63 MG/3 ML NEB NEB PRN (14:20)
--- NOTE | 2019-07-11 15:01 | Electrocardiogram Report ---
Test Reason : Blood Pressure : / mmHG Vent. Rate : 106 BPM Atrial Rate : 106 BPM P-R Int : 148 ms QRS Dur : 076 ms QT Int : 332 ms P-R-T Axes : 069 084 062 degrees QTc Int : 441 ms Sinus tachycardia Otherwise normal ECG When compared with ECG of 09-JUL-2019 13:06, T wave inversion no longer evident in Inferior leads T wave inversion no longer evident in Anterolateral leads Confirmed by Moses Fong ([id number]) on 07/11/2019 3:01:15 PM Referred By: REFERRED SELF Confirmed By:Lionel Fong
[2019-07-11] MEDS: IPRATROPIUM BROMIDE NEB SOLN 0.02% 2.5 ML VIAL INH SCH ×2 (17:28→19:39)
--- NOTE | 2019-07-11 18:23 | Hospitalist Progress Note ---
Date of Service July 11, 2019 Assessment & Plan (1) Pneumonia: History of asthma and admitted with increasing shortness of breath, cough and wheezing Noted to be tachycardic since admission without any fever and/or chills Chest x-ray this morning did show developing right basal pneumonia Started with intravenous Levaquin and will be continued for a total of 7 to 10 days on discharge (2) Asthma exacerbation: Exacerbation of asthma, probably due to viral infection. 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 Persistent severe symptoms after receiving nebs, steroids, IV Mg, and IV fluids in ED. IV methylprednisolone. Levalbuterol / ipratropium nebs. No apparent indication for antibiotics at this time; reassess need if symptoms persist or worsen. Condition got worse likely secondary to development of pneumonia Has been put back on intravenous Solu-Medrol and nebulized bronchodilator as needed We will continue with rescue inhalers and nebulized steroids on discharge Blood better following administration of intravenous antibiotic Likely be discharged tomorrow Has an appointment with outpatient provider Dr. Jung (3) DVT prophylaxis: Low risk for VTE per IMPROVE risk assessment model, but increased risk due to asthma exacerbation and decreased mobility. SQ enoxaparin. Ambulate. Discussed with the father and the family members (4) Discharge planning issues: Anticipated discharge to home. Family Medicine follow-up with Dr. Recinos. Admission and Anticipated Discharge Date Admission Date: July 09, 2019 Subjective 07/10/2019 The patient was seen and examined in medical telemetry in presence of the father She was admitted yesterday with acute exacerbation of asthma She has been feeling a lot better this morning Only complains however cough and some wheezing She wants to go home this afternoon and was advised to ambulate in the hallway see how things go 07/11/2019 Patient was seen and examined in medical floor She has had more shortness of breath and wheezing last night and has been put back on intravenous steroid and nebulized bronchodilator She remains tachycardic Chest x-ray did show possible developing pneumonia right lung She has some cough but no significant shortness of breath during my examination this morning Review of Systems Review of Systems: All systems reviewed and are unremarkable except as noted below Respiratory: + cough, + dyspnea on exertion and + wheezing Physical Exam Physical Exam: Lying in bed with some shortness of breath and wheezing Constitutional: well developed and well nourished; no acute distress and not ill appearing Eyes: PERRL, conjunctivae normal, anicteric sclerae ENMT: external ear and nose normal, oropharynx normal Neck: trachea midline, no thyromegaly Respiratory: + respiratory distress (Minimal distress due to wheezing and shortness of breath) Auscultation: + diminished lung sounds, + crackles (Noted bilaterally mostly on the right side) and + wheezes (Noted bilaterally) Cardiovascular: Rate/Rhythm: regular rate, regular rhythm and + tachycardic Heart Sounds: no murmur Gastrointestinal (Abdomen): Inspection/Auscultation: abdomen normal to inspection and normal bowel sounds Percussion/Palpation: abdomen soft; abdomen nontender Neurologic: patellar DTR's 2+ bilat, sensation intact Lymphatic: no cervical or axillary lymphadenopathy Results & Data ([facility]) Vital Signs (Past 12 Hours) Vital Signs Temp Pulse Pulse Resp BP Pulse Ox 07/11/19 16:30 120 H 92 07/11/19 16:22 37.0 C 124 H 19 125/80 88 L 07/11/19 15:48 92 H 20 97 07/11/19 15:17 130 H 07/11/19 11:18 36.9 C 118 H 18 137/82 90 07/11/19 07:52 115 H 18 92 07/11/19 07:48 117 H 07/11/19 07:33 37.0 C 117 H 18 122/72 90 Laboratory Results Short CBC 07/11/19 Range/Units 09:59 WBC 10.96 H (4.8-10.8) K/uL Hgb 13.4 D (12.0-16.0) g/dL Hct 40.1 (37-47) % Plt Count 190 (130-400) K/uL BMP 07/11/19 09:59 Sodium 142 Potassium 3.1 L D Chloride 109 H Carbon Dioxide 24 BUN 12 D Creatinine 0.92 Glucose 107 H Calcium 9.0 Diagnostic Findings Chest x-ray: Faint hazy density within the right lung base. In retrospect this was present in the prior chest CT 8 favors a developing pneumonia. Medications Administered Current Inpatient Medications Acetaminophen (Tylenol) 650 mg PO Q4H PRN PRN Reason: Pain or Fever Stop: 08/08/19 15:36 Last Admin: 07/11/19 12:05 Dose: 650 mg Documented by: Albuterol (Ventolin Hfa) 2 puffs INH Q4H PRN PRN Reason: Shortness Of Breath Or Wheezing Stop: 08/09/19 17:00 Last Admin: 07/10/19 19:08 Dose: 2 puffs Documented by: Benzonatate (Tessalon Perle) 100 mg PO TID PRN PRN Reason: Cough Stop: 08/09/19 04:20 Last Admin: 07/11/19 03:06 Dose: 100 mg Documented by: Enoxaparin Sodium (Lovenox) 40 mg SQ HS GABBI Stop: 08/08/19 20:59 Last Admin: 07/10/19 21:37 Dose: 40 mg Documented by: Fluticasone Furoate ([place] Ellipta 200mcg) 1 puffs INH DAILY GABBI Stop: 08/10/19 08:59 Last Admin: 07/11/19 08:14 Dose: 1 puffs Documented by: Guaifenesin/Codeine Phosphate (Robitussin-Ac Sugar Free) 5 ml PO Q6H PRN PRN Reason: Cough Stop: 08/09/19 04:20 Methylprednisolone 60 mg/ (Syringe) 0.96 mls @ 1.5 mls/min IV Q8H GABBI Stop: 08/10/19 04:59 Last Admin: 07/11/19 12:02 Dose: 1.5 mls/min Documented by: Levofloxacin/Dextrose (Levaquin/D5w) 750 mg in 150 mls @ 100 mls/hr IV Q24H GABBI Stop: 07/18/19 10:59 Last Infusion: 07/11/19 12:33 Dose: Infused Documented by: Ioversol (Optiray 320 125ml) 120 ml IV ONCE PRN PRN Reason: Interaction Checking Stop: 07/13/19 13:10 Last Admin: 07/09/19 13:11 Dose: 120 ml Documented by: Ipratropium [place] (Atrovent 0.02% 0.5mg/2.5ml) 0.5 mg INH Q6R GABBI Stop: 08/10/19 16:29 Last Admin: 07/11/19 17:28 Dose: Not Given Documented by: Levalbuterol HCl (Xopenex 0.63 Mg/3 Ml Neb) 0.63 mg NEB Q6R GABBI Stop: 03/26/20 16:29 Last Admin: 07/11/19 17:29 Dose: Not Given Documented by: Sodium Chloride ([place] Nasal) 0 sprays NA PRN PRN PRN Reason: dry nose Stop: 08/08/19 22:25 (1) Asthma exacerbation Asthma persistence: persistent Asthma severity: severe Qualified Code(s): J45.51 - Severe persistent asthma with (acute) exacerbation
[2019-07-11] MEDS: ENOXAPARIN INJ 40 MG/0.4 ML SYR SQ SCH (20:44)
[2019-07-12] MEDS: IPRATROPIUM BROMIDE NEB SOLN 0.02% 2.5 ML VIAL INH SCH ×3 (01:02→11:39)
[2019-07-12] MEDS: LEVALBUTEROL HCL 0.63 MG/3 ML NEB NEB SCH ×3 (01:02→11:39)
[2019-07-12] MEDS: ACETAMINOPHEN 325 MG TAB PO PRN (05:19)
[2019-07-12] MEDS: methylPREDNISolone 60 MG in SYRINGE 0 ML IV SCH (05:20)
[2019-07-12 07:49] LABS: Hematocrit (blood only) 40.7 % (37-47); Hemoglobin 13.8 g/dL (12.0-16.0); Immature Granulocytes # (auto) 0.03 K/uL (0.00-0.02); Immature Granulocytes % (auto) 0.3 %; Lymphocytes # (auto) 0.65 K/uL (1.2-3.4); Lymphocytes % (auto) 5.9 %; Mean Corpuscular Hemoglobin 30.1 pg (25-34); Mean Corpuscular Hgb Conc 33.9 g/dL (32-36); Mean Corpuscular Volume 88.9 fL (80-100); Mean Platelet Volume 9.9 fL (7.4-10.4); Monocytes # (auto) 0.53 K/uL (0.11-0.59); Monocytes % (auto) 4.8 %; Neutrophils # (auto) 9.89 K/uL (1.4-6.5); Platelet Count 192 K/uL (130-400); RDW Coefficient of Variation 13.8 % (11.5-14.5); RDW Standard Deviation 45.3 fL (36.4-46.3); Red Blood Count 4.58 M/uL (4.2-5.4)
[2019-07-12 08:22] LABS: BUN Creatinine Ratio 14.6 (10-20); Calcium 9.3 mg/dl (8.5-10.1); Creatinine Clr Calc Pharmacy 108.3 ml/min; Est GFR (African American) 126.6; Est GFR (Non-African American) 109.2; Potassium 4.2 mmol/L (3.5-5.1)
[2019-07-12] MEDS: FLUTICASONE FUROATE 200MCG 14 PUFFS/INHALER INH SCH (08:48)
--- NOTE | 2019-07-12 10:22 | Hospitalist Progress Note ---
Date of Service July 12, 2019 Assessment & Plan (1) Pneumonia: History of asthma and admitted with increasing shortness of breath, cough and wheezing Noted to be tachycardic since admission without any fever and/or chills Chest x-ray this morning did show developing right basal pneumonia Started with intravenous Levaquin and will be continued for a total of 7 to 10 days on discharge Clinically a lot better today and will be discharged home this afternoon (2) Asthma exacerbation: Exacerbation of asthma, probably due to viral infection. [employer] swab for influenza A/B PCR negative. Persistent severe symptoms after receiving nebs, steroids, IV Mg, and IV fluids in ED. IV methylprednisolone. Levalbuterol / ipratropium nebs. No apparent indication for antibiotics at this time; reassess need if symptoms persist or worsen. Condition got worse likely secondary to development of pneumonia Has been put back on intravenous Solu-Medrol and nebulized bronchodilator as needed We will continue with rescue inhalers and nebulized steroids on discharge Blood better following administration of intravenous antibiotic Has an appointment with outpatient provider Dr. Jung Should be discharged home this afternoon (3) DVT prophylaxis: Low risk for VTE per IMPROVE risk assessment model, but increased risk due to asthma exacerbation and decreased mobility. SQ enoxaparin. Ambulate. Discussed with the father and the family members (4) Discharge planning issues: Anticipated discharge to home. Family Medicine follow-up with Dr. Recinos. Admission and Anticipated Discharge Date Admission Date: July 09, 2019 Subjective 07/10/2019 The patient was seen and examined in medical telemetry in presence of the father She was admitted yesterday with acute exacerbation of asthma She has been feeling a lot better this morning Only complains however cough and some wheezing She wants to go home this afternoon and was advised to ambulate in the hallway see how things go 07/11/2019 Patient was seen and examined in medical floor She has had more shortness of breath and wheezing last night and has been put back on intravenous steroid and nebulized bronchodilator She remains tachycardic Chest x-ray did show possible developing pneumonia right lung She has some cough but no significant shortness of breath during my examination this morning 07/12/2019 The patient was seen and examined in medical floor She has been feeling a lot better today and she denies any symptoms at rest She was advised to walk around the hallway before she is discharged this afternoon Review of Systems Review of Systems: All systems reviewed and are unremarkable except as noted below Respiratory: + dyspnea on exertion and + wheezing; no cough Physical Exam Physical Exam: Lying in bed without any symptoms Constitutional: well developed and well nourished; no acute distress and not ill appearing Eyes: PERRL, conjunctivae normal, anicteric sclerae ENMT: external ear and nose normal, oropharynx normal Neck: trachea midline, no thyromegaly Respiratory: no respiratory distress (Minimal distress due to wheezing and shortness of breath) Auscultation: + wheezes (Minimal wheezing bilateral); no crackles (Noted bilaterally mostly on the right side) Cardiovascular: Rate/Rhythm: regular rate, regular rhythm and + tachycardic Heart Sounds: no murmur Gastrointestinal (Abdomen): Inspection/Auscultation: abdomen normal to ins pection and normal bowel sounds Percussion/Palpation: abdomen soft; abdomen nontender Neurologic: patellar DTR's 2+ bilat, sensation intact Lymphatic: no cervical or axillary lymphadenopathy Results & Data ([facility]) Vital Signs (Past 12 Hours) Vital Signs Temp Pulse Pulse Resp BP Pulse Ox 07/12/19 08:09 86 18 96 07/12/19 07:30 36.7 C 101 H 16 125/85 92 07/12/19 07:13 88 07/12/19 04:28 36.8 C 96 H 18 110/68 93 07/12/19 01:03 91 H 14 92 07/11/19 23:59 92 H 07/11/19 23:12 36.9 C 97 H 20 126/81 91 Laboratory Results Short CBC 07/11/19 07/12/19 Range/Units 09:59 07:38 WBC 10.96 H 11.10 H (4.8-10.8) K/uL Hgb 13.4 D 13.8 (12.0-16.0) g/dL Hct 40.1 40.7 (37-47) % Plt Count 190 192 (130-400) K/uL BMP 07/11/19 07/12/19 09:59 07:38 Sodium 142 140 Potassium 3.1 L D 4.2 D Chloride 109 H 110 H Carbon Dioxide 24 24 BUN 12 D 11 Creatinine 0.92 0.75 Glucose 107 H 103 H Calcium 9.0 9.3 Medications Administered Current Inpatient Medications Acetaminophen (Tylenol) 650 mg PO Q4H PRN PRN Reason: Pain or Fever Stop: 08/08/19 15:36 Last Admin: 07/12/19 05:19 Dose: 650 mg Documented by: Albuterol (Ventolin Hfa) 2 puffs INH Q4H PRN PRN Reason: Shortness Of Breath Or Wheezing Stop: 08/09/19 17:00 Last Admin: 07/10/19 19:08 Dose: 2 puffs Documented by: Benzonatate (Tessalon Perle) 100 mg PO TID PRN PRN Reason: Cough Stop: 08/09/19 04:20 Last Admin: 07/11/19 03:06 Dose: 100 mg Documented by: Enoxaparin Sodium (Lovenox) 40 mg SQ HS [facility] Stop: 08/08/19 20:59 Last Admin: 07/11/19 20:44 Dose: Not Given Documented by: Fluticasone Furoate (Arnuity Ellipta 200mcg) 1 puffs INH DAILY GABBI Stop: 08/10/19 08:59 Last Admin: 07/12/19 08:48 Dose: 1 puffs Documented by: Guaifenesin/Codeine Phosphate (Robitussin-Ac Sugar Free) 5 ml PO Q6H PRN PRN Reason: Cough Stop: 08/09/19 04:20 Methylprednisolone 60 mg/ (Syringe) 0.96 mls @ 1.5 mls/min IV Q8H GABBI Stop: 08/10/19 04:59 Last Admin: 07/12/19 05:20 Dose: 1.5 mls/min Documented by: Levofloxacin/Dextrose (Levaquin/D5w) 750 mg in 150 mls @ 100 mls/hr IV Q24H GABBI Stop: 07/18/19 10:59 Last Infusion: 07/11/19 12:33 Dose: Infused Documented by: Ioversol (Optiray 320 125ml) 120 ml IV ONCE PRN PRN Reason: Interaction Checking Stop: 07/13/19 13:10 Last Admin: 07/09/19 13:11 Dose: 120 ml Documented by: Ipratropium [place] (Atrovent 0.02% 0.5mg/2.5ml) 0.5 mg INH Q6R GABBI Stop: 08/10/19 16:29 Last Admin: 07/12/19 08:08 Dose: 0.5 mg Documented by: Levalbuterol HCl (Xopenex 0.63 Mg/3 Ml Neb) 0.63 mg NEB Q6R GABBI Stop: 08/10/19 16:29 Last Admin: 07/12/19 08:08 Dose: 0.63 mg Documented by: Sodium Chloride ([place] Nasal) 0 sprays NA PRN PRN PRN Reason: dry nose Stop: 08/08/19 22:25 (1) Asthma exacerbation Asthma persistence: persistent Asthma severity: severe Qualified Code(s): J45.51 - Severe persistent asthma with (acute) exacerbation
[2019-07-12] MEDS: LEVOFLOXACIN/D5W 750 MG/150 ML BAG IV SCH (11:14)
--- NOTE | 2019-07-12 18:33 | Discharge Summary ---
Date of Service July 12, 2019 Admission HPI Per Admitting Provider 29 [address]O female followed by Dr[address] Recinos. History of asthma. Hospitalized in past, never intubated. Otherwise, enjoys good health. Noted sinus congestion a few weeks ago. Developed cough, wheezing, SOB about 2 days ago. No fever. No pharyngitis. No chest pain. No sick contacts. No international travel. Works with horses. No unusual exposure to dust, smoke, irritants, allergens. Tried doxycycline and albuterol nebs without significant improvement. Symptoms worsening. Now experiencing dyspnea with minimal exertion (e.g., walking to bathroom). Came to ED for evaluation. Persistent wheezing and SOB after receiving nebs, IV fluids, IV magnesium, and IV steroids. Admission Exam Per Admitting Provider Constitutional: WD/WN, vitals as above no acute distress Eyes: PERRL, conjunctivae normal, anicteric sclerae ENMT: external ear and nose normal, oropharynx normal Neck: trachea midline, no thyromegaly Respiratory: + tachypneic Auscultation: + wheezes (diffuse, moderately severe, slightly prolonged expiration) Cardiovascular: Rate/Rhythm: regular rate and + tachycardic Heart Sounds: no gallop, no murmur and no cardiac rub Vessels: no JVD Extremities: normal capillary refill; no calf tenderness and no edema Gastrointestinal (Abdomen): normal bowel sounds, soft, nontender, no hepatosplenomegaly Musculoskeletal: Head/Neck/Chest: neck supple Extremities: strength 5/5 throughout; no cyanosis and no clubbing Skin: no rashes, warm and dry Neurologic: PERRL, EOMI no facial palsy no dysarthria or aphasia Psychiatric: Orientation: alert and oriented x 3 Affect: euthymic affect Lymphatic: no cervical lymphadenopathy Principal Diagnosis Exacerbation of asthma Discharge Exam Constitutional well developed and well nourished; no acute distress and not ill appearing Eyes PERRL, conjunctivae normal, anicteric sclerae ENMT external ear and nose normal, oropharynx normal Neck trachea midline, no thyromegaly Respiratory no respiratory distress (Minimal distress due to wheezing and shortness of breath) Auscultation: + wheezes (Minimal wheezing bilateral); no crackles (Noted bilaterally mostly on the right side) Cardiovascular Rate/Rhythm: regular rate, regular rhythm and + tachycardic Heart Sounds: no murmur Gastrointestinal (Abdomen) Inspection/Auscultation: abdomen normal to inspection and normal bowel sounds Percussion/Palpation: abdomen soft; abdomen nontender Neurologic patellar DTR's 2+ bilat, sensation intact Lymphatic no cervical or axillary lymphadenopathy Discharge Data Allergies Allergy/AdvReac Type Severity Reaction Status Date / Time Penicillins Allergy Unknown HIVES Unverified 07/09/19 10:32 Consultations 07/09/19 12:49 ED Decision to Admit Stat Ordered Studies 07/09/19 12:49 CT angio chest PE protocol Stat Hospital Course (1) Pneumonia: History of asthma and admitted with increasing shortness of breath, cough and wheezing Noted to be tachycardic since admission without any fever and/or chills Chest x-ray this morning did show developing right basal pneumonia Started with intravenous Levaquin and will be continued for a total of 7 to 10 days on discharge Clinically a lot better today and will be discharged home this afternoon (2) Asthma exacerbation: Exacerbation of asthma, probably due to viral infection. 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 Persistent severe symptoms after receiving nebs, steroids, IV Mg, and IV fluids in ED. IV methylprednisolone. Levalbuterol / ipratropium nebs. No apparent indication for antibiotics at this time; reassess need if symptoms persist or worsen. Condition got worse likely secondary to development of pneumonia Has been put back on intravenous Solu-Medrol and nebulized bronchodilator as needed We will continue with rescue inhalers and nebulized steroids on discharge Blood better following administration of intravenous antibiotic Has an appointment with outpatient provider Dr. Jung Should be discharged home this afternoon (3) DVT prophylaxis: Low risk for VTE per IMPROVE risk assessment model, but increased risk due to asthma exacerbation and decreased mobility. SQ enoxaparin. Ambulate. Discussed with the father and the family members (4) Discharge planning issues: Anticipated discharge to home. Family Medicine follow-up with Dr. Recinos. Total Time Total Time Spent Total Time Spent (In Minutes): 35 minutes Total Time Includes: Examination of the Patient, Discharge Planning, Medication Reconciliation and Communication With Other Providers Discharge Plan Discharge Items Patient Disposition: Home - Self-Care Reason For Visit: ASTHMA EXACERBATION Discharge Diagnosis: Exacerbation of asthma Condition on Discharge: Good Activity: Resume your previous activity Non-emergency contact: Primary Care Provider Call non-emergency contact if: you have any medication questions and your symptoms worsen Follow-up/Referrals: PT,DECLINED [Primary Care Provider] - 07/17/19 8:45 am (Your appointment is with Dr. Recinos at [facility]) Diet: Regular Addtl Attending Provider Instructions: Please try to avoid stimulants for your respiratory system as advised Pending Studies at Discharge: No Stand-Alone Forms: My [facility] [employer], Smoking Cessation Medications and DC Order Prescriptions: New prednisone 20 mg tablet 20 mg PO BID 5 Days Qty: 10 RF: 0 budesonide 90 mcg/actuation aerosol powdr breath activated 1 puffs INH BID Qty: 1 RF: 0 budesonide 90 mcg/actuation aerosol powdr breath activated 1 puffs INH BID Qty: 1 RF: 0 prednisone 20 mg tablet 40 mg PO DAILY Qty: 8 RF: 0 levofloxacin [Levaquin] 750 mg tablet 750 mg PO DAILY 5 Days Qty: 5 RF: 0 Lactinex 1 million cell tablet,chewable 1 tab PO BID Qty: 20 RF: 0 albuterol sulfate 2.5 mg /3 mL (0.083 %) Solution For Nebulization 2.5 mg INHALATION Q4H PRN (Reason: Wheezing) 30 Days Qty: 60 RF: 0 albuterol sulfate 90 mcg/actuation Hfa Aerosol Inhaler 2 puff INHALATION Q4H PRN (Reason: Wheezing) 30 Days Qty: 1 RF: 0 Discharge Orders: Discharge Order (Routine); Ordered 07/12/19 Ordered By: Kaur Gross Admission Data Admit Date/Time: 07/09/19 13:46 Attending Provider: Kaur Gross Admit Provider: Salomón uBrroughs Primary Care Provider: [email or web address] Other Providers: Salomón Burroughs Other Interventions: Discharge Summary Assessment (RN) Last Done: 07/12/19 11:22 DC Date/Time DO NOT enter until pt leaves facility: 07/12/19 13:15
== END 2019-07-12 13:15 | disposition home or self-care (01) | DRG 202 ==
LOC: ED 09:58 → SUATTDRO 13:46 → 2W 13:46